=== PATIENT | female | born 1965 | race Caucasian/White ===

== ENCOUNTER 2017-11-02 20:14 | Emergency (ER) | payer BC ==
[~2017-11-02] VITALS: Ht 160 cm; Wt 68.3 kg
[~2017-11-02 20:14] MED LIST: ADVIL,NUPRIN,M200 MG PO; ATARAX10 MG PO; BACTRIM,SEPT1 TABLET PO; HYDROCODON-ACE1 EAC8 PO; NEXIUM40 MG PO; ROBITUSSIN AC,T10 ML PO; TAMIFLU75 MG PO; TORADOL10 MG PO; VOLTAREN75 MG PO
[2017-11-02 21:07] LABS: HEMATOCRIT 42.4 % (36.0-46.0); MCH 31.1 PG (29.0-34.0); MCHC 33.5 G/DL (30.0-36.0); MCV 92.8 FL (83-99); MEAN PLAT.VOLUME 10.7 uM^3 (9.5-12.4); PLATELET COUNT 260 K/uL (156-360); RBC DIS.WIDTH-CV 12.4 % (11.8-14.6); RBC DIS.WIDTH-SD 42.1 % (39-53); RED BLOOD COUNT 4.57 M/uL (3.80-5.20); WHITE BLOOD COUNT 10.7 K/uL (4.1-10.2)
[2017-11-02 21:20] LABS: CHLORIDE 106 mEq/L (99-109); POTASSIUM 3.9 mEq/L (3.7-5.4); SODIUM 142 mEq/L (136-147)
[2017-11-02 21:22] LABS: GLUCOSE 91 mg/dL (70-99)
[2017-11-02 21:23] LABS: ANION GAP 10 MEQ/L (2-14)
[2017-11-02 21:26] LABS: GFR ESTIMATE (CALCULATED) 46 mL/min/
[2017-11-02 21:27] LABS: UREA NITROGEN (BUN) 14 mg/dL (9-23)
[2017-11-02 21:29] LABS: TROP-I INTERPRETATION NEGATIVE; TROPONIN-I < 0.01 ng/mL (0.0-0.30)
[2017-11-02 21:43] VITALS: BP 150/94
== END 2017-11-02 21:44 | disposition home or self-care (01) ==
LOC: EME 20:14
PROVIDERS: Emergency Medicine
DX: F41.0 Panic disorder [episodic paroxysmal anxiety] (principal); R00.2 Palpitations; Z90.710 Acquired absence of both cervix and uterus
CPT/HCPCS: 80048; 84484; 85027; 93005; 99281; 99284